=== PATIENT | female | born 1950 | race Caucasian/White ===

== ENCOUNTER 2017-04-06 11:13 | Emergency (ER) | payer BC ==
--- NOTE | 2017-04-06 12:10 | EDM.PDOC ---
ED HPI GENERAL MEDICAL PROBLEM - General Chief Complaint: Neurological Problem Stated Complaint: HEAD LAC/HAS STITCHES/HEAD NUMBNESS Time Seen by Provider: 04/06/17 11:58 Source of Information: Reports: Patient History Limitations: Reports: No Limitations - History of Present Illness INITIAL COMMENTS - FREE TEXT/NARRATIVE: Patient is a 66-year-old female who presents today with concerns of having paresthesias to the left lateral forehead and parietal aspect of her head. Patient states this past a wall clock fell off the wall hitting her left eyebrow/forehead. Patient sustained a small laceration to the eyebrow requiring a few stitches that day. She had no paresthesias prior to area. Paresthesias started after being anesthetized with unknown medication. Unknown what type of medication was utilized. Paresthesias have remained constant with no change. She has developed mild ecchymosis to the left upper eyelid. Otherwise minimal swelling is present. She denies any headache, nausea/vomiting , vision changes, numbness tingling to extremities, weakness, or any additional TIA or strokelike symptoms. She has no prior history of head bleed or TIA or stroke. Patient does not have a left tympanic membrane and thus does have some balance issues with walking that is unchanged. She denies any head/neck/back pain. - Related Data Allergies Allergy/AdvReac Type Severity Reaction Status Date / Time No Known Allergies Allergy Verified 04/06/17 11:27 Home Meds: Home Meds Aspirin [Halfprin] 81 mg PO DAILY 08/19/14 [History] DULoxetine HCl [Cymbalta] 60 mg PO DAILY 08/19/14 [History] Potassium Chloride 20 meq PO DAILY #4 tablet.er 08/19/14 [Rx] Triamterene/Hydrochlorothiazid [Triamterene-HCTZ 75-50 MG] 75 mg PO DAILY [History] lamoTRIgine [Lamotrigine] 50 mg PO BID 08/19/14 [History] Social & Family History - Tobacco Use Smoking Status *Q: Never Smoker Second Hand Smoke Exposure: No - Alcohol Use Days Per Week of Alcohol Use: 0 - Recreational Drug Use Recreational Drug Use: No ED ROS GENERAL - Review of Systems Review Of Systems: ROS reveals no pertinent complaints other than HPI. ED EXAM, NEURO - Physical Exam Exam: See Below Exam Limited By: No Limitations General Appearance: Alert, WD/WN, No Apparent Distress Eye Exam: Bilateral Eye: EOMI, Nystagmus (None found), PERRL Ears: Normal External Exam, Hearing Grossly Normal Nose: Normal Inspection Throat/Mouth: Normal Voice, No Airway Compromise Neck: Normal Inspection, Supple, Non-Tender, Full Range of Motion. No: Lymphadenopathy (L), Lymphadenopathy (R) Respiratory/Chest: No Respiratory Distress, Lungs Clear, Normal Breath Sounds, No Accessory Muscle Use Cardiovascular: Normal Peripheral Pulses, Regular Rate, Rhythm Neurological: Alert, Normal Mood/Affect, Normal Dorsiflexion, CN II-XII Intact, Normal Plantar Flexion, No Motor/Sensory Deficits, Oriented x 3, Other (With examination of left for the patient does have no sensory deficits noted. She states she has some paresthesias noted to the left lateral forehead in the parietal aspect of her head. There is normal wrinkling associated to the forehead. No findings concerning for stroke/TIA. No bruising, swelling, hematoma to the forehead or parietal aspect of her head. No facial drooping, uvula is midline, pronator drift, weakness to the upper or lower extremities, cerebellar functions intact.) Back Exam: Normal Inspection, Full Range of Motion Extremities: Normal Inspection, Non-Tender, No Pedal Edema, Normal Capillary Refill Psychiatric: Normal Affect, Normal Mood Skin Exam: Warm, Dry, Ecchymosis (Left upper eyelid), Wound/Incision ( Laceration to the left eyebrow with sutures in place. No redness, increased swelling, purulent drainage.) Course - Vital Signs Last Recorded V/S: Last Vital Signs Temp 97.7 F 04/06/17 11:28 Pulse 70 04/06/17 11:28 Resp BP 142/82 H 04/06/17 12:21 Pulse Ox 96 04/06/17 11:28 - Re-Assessments/Exams Free Text/Narrative Re-Assessment/Exam: Examination did not reveal any concerning findings at this time. No clear etiology of paresthesia but most likely associated with the trauma and also being anesthetized. No deficits noted concerning for stroke or TIA. Will discharge patient home with instructions as documented. Departure - Departure Time of Disposition: 12:09 Disposition: Home, Self-Care 01 Condition: Good Clinical Impression: Facial paresthesia - Discharge Information Instructions: Paresthesia, [id number] Referrals: Toney Lyons MD [Primary Care Provider] - Forms: ED Department Discharge Additional Instructions: Will have you followup with PCP this coming Saturday for suture removal. Paresthesias most likely associated with recent trauma and local anesthesia. At this point no focal neurological deficits are's present concerning for stroke or TIA. Continue to monitor for worsening symptoms. Return back to ED as needed.
[2017-04-06 12:21] VITALS: BP 142/82
== END 2017-04-06 12:25 | disposition home or self-care (01) ==
LOC: JD.ED 11:13
DX: R20.9 Unspecified disturbances of skin sensation (principal); Z79.82 Long term (current) use of aspirin
CPT/HCPCS: 99282; 99284

== ENCOUNTER 2017-08-06 06:48 | Day surgery (SDC) | payer BC, MEDICARE ==
--- NOTE | 2017-07-31 07:37 | HP ---
DATE OF ADMISSION: 08/06/2017 HISTORY: This is a 66-year-old female, being brought in for outpatient surgery for severe carpal tunnel problems involving the right wrist. The patient had positive nerve conduction studies showing severe involvement of the motor function and sensory function of the median nerve at the wrist level. She has had failed conservative treatment. She is now being scheduled for a right carpal tunnel release. She also has similar problems involving her left wrist, which will be addressed at a later time. ALLERGIES: No known drug allergies. PAST MEDICAL HISTORY: She been a healthy 66-year-old female. She does have a history of depression and anxiety. CURRENT MEDICATIONS: Include duloxetine and also triamterene. PAST SURGICAL HISTORY: Positive. She has had previous ankle surgery with anesthesia. She notes no problems with the anesthetic. She has a negative bleeding history, negative blood clot history. SOCIAL HISTORY: She is a nonsmoker and nondrinker. PHYSICAL EXAMINATION: VITAL SIGNS: Physical examination today reveals a well-developed, well- nourished 66-year-old female in moderate distress. HEAD, EYES, EARS, NOSE, AND THROAT: Normocephalic. NECK: Supple. CHEST: Clear. COR: Regular rate. ABDOMEN: Soft. : Intact. EXTREMITIES: Examination of the right wrist reveals severe Tinel's. Examination of the right median nerve, positive pain in the carpal tunnel area and positive thenar atrophy. ASSESSMENT: Overall impression is severe carpal tunnel syndrome, right wrist, with failed treatment. PLAN: Plan is for the patient to undergo right carpal tunnel release. LISA /[id number]
[2017-08-06] MEDS ORDERED: Lidocaine 1%/Sod Bicarbonate in NS 8.4% 1 ML Syringe PRN (07:00)
[2017-08-06] MEDS ORDERED: Sodium Chloride 0.9% 10 ML Syringe FLUSH PRN (07:00)
[2017-08-06] MEDS ORDERED: Lactated Ringers 1,000 ML IV SCH (07:00)
--- NOTE | 2017-08-06 07:08 | PCM.PREANE ---
Preanesthetic Assessment - Procedure Proposed Procedure: R CTR - Anesthesia/Transfusion/Family Hx Anesthesia History: Prior Anesthesia Without Reaction Family History of Anesthesia Reaction: No Transfusion History: No Prior Transfusion(s) Intubation History: Unknown - Review of Systems General: No Symptoms Pulmonary: No Symptoms Cardiovascular: No Symptoms Gastrointestinal: No Symptoms Neurological: No Symptoms Other: Reports: None - Physical Assessment NPO Status Date: 08/05/17 NPO Status Time: 21:00 Pulse: 73 O2 Sat by Pulse Oximetry: 95 Respiratory Rate: 16 Blood Pressure: 129/69 Temperature: 97.9 F ASA Class: 2 Mental Status: Alert & Oriented x3 Airway Class: Mallampati = 2 Dentition: Reports: Normal Dentition Thyro-Mental Finger Breadths: 3 Mouth Opening Finger Breadths: 3 ROM/Head Extension: Full Lungs: Clear to Auscultation, Normal Respiratory Effort Cardiovascular: Regular Rate, Regular Rhythm - Allergies Allergies/Adverse Reactions: Allergies Allergy/AdvReac Type Severity Reaction Status Date / Time No Known Allergies Allergy Verified 08/05/17 12:40 - Anesthesia Plan Pre-Op Medication Ordered: None - Acknowledgements Anesthesia Type Planned: [place] Pt an Appropriate Candidate for the Planned Anesthesia: Yes Alternatives and Risks of Anesthesia Discussed w Pt/Guardian: Yes Pt/Guardian Understands and Agrees with Anesthesia Plan: Yes PreAnesthesia Questionnaire HEENT History: Reports: None Cardiovascular History: Reports: High Cholesterol, Hypertension Respiratory History: Reports: None Gastrointestinal History: Reports: None Genitourinary History: Reports: None MARKETING REP History: Reports: None Musculoskeletal History: Reports: Gout Neurological History: Reports: None Psychiatric History: Reports: Anxiety, Depression Endocrine/Metabolic History: Reports: None Hematologic History: Reports: None Immunologic History: Reports: None Oncologic (Cancer) History: Reports: None Dermatologic History: Reports: None - Past Surgical History Head Surgeries/Procedures: Reports: None HEENT Surgical History: Reports: None Cardiovascular Surgical History: Reports: None Respiratory Surgical History: Reports: None GI Surgical History: Reports: Colonoscopy Female Surgical History: Reports: None Male Surgical History: Reports: None Endocrine Surgical History: Reports: None Neurological Surgical History: Reports: None Musculoskeletal Surgical History: Reports: Other (See Below) Other Musculoskeletal Surgeries/Procedures:: left ankle fracture with hardware Oncologic Surgical History: Reports: None Dermatological Surgical History: Reports: None - SUBSTANCE USE Smoking Status *Q: Former Smoker Tobacco Use Within Last Twelve Months: No Second Hand Smoke Exposure: No Days Per Week of Alcohol Use: 0 Recreational Drug Use History: No - HOME MEDS Home Medications: Home Meds Aspirin [Halfprin] 81 mg PO DAILY 08/19/14 [History] Triamterene/Hydrochlorothiazid [Triamterene-HCTZ 75-50 MG] 75 mg PO DAILY [History] DULoxetine [Cymbalta] 60 mg PO DAILY 08/05/17 [History] Dorzolamide HCl/Timolol Maleat [Cosopt Eye Drops] 1 drop EYEBOTH BID 08/05/17 [ History] - CURRENT (IN HOUSE) MEDS Current Meds: Current Medications Lactated Ringer's (Ringers, Lactated) 1,000 mls @ 125 mls/hr IV ASDIRECTED ANGEL Stop: 08/06/17 23:00 Lidocaine/Sodium Bicarbonate (Buffered Lidocaine 1% In Ns 8.4%) 0.25 ml .XX ONETIME PRN PRN Reason: Prior to IV Start Stop: 08/06/17 18:00 Sodium Chloride (Saline Flush) 10 ml FLUSH ASDIRECTED PRN PRN Reason: Keep Vein Open Stop: 08/06/17 18:00
[2017-08-06] MEDS ORDERED: Lidocaine 0.5% 50 ML SDV ONE (07:27)
[2017-08-06] MEDS ORDERED: Sodium Bicarbonate 8.4% 50 MEQ/50 ML SDV ONE (07:27)
[2017-08-06] MEDS ORDERED: fentaNYL 100 MCG/2 ML SDV ONE (07:28)
[2017-08-06] MEDS ORDERED: Propofol 200 MG/20 ML SDV ONE (07:28)
[2017-08-06] MEDS ORDERED: Midazolam 1 MG/ML 2 ML SDV ONE (07:28)
[2017-08-06] MEDS ORDERED: Acetaminophen/HYDROcodone 325-5 MG Tab PO PRN (07:33)
[2017-08-06] MEDS ORDERED: ceFAZolin 1 GM Vial ONE (07:36)
[2017-08-06] MEDS ORDERED: Lactated Ringers 1,000 ML ONE (08:32)
[2017-08-06] MEDS ORDERED: Dexamethasone 4 MG/ML SDV ONE (08:33)
--- NOTE | 2017-08-06 08:44 | PCM48HPAN ---
Post Anesthesia Note - EVALUATION WITHIN 48HRS OF ANESTHETIC Vital Signs in Normal Range: Yes Patient Participated in Evaluation: Yes Respiratory Function Stable: Yes Airway Patent: Yes Cardiovascular Function Stable: Yes Hydration Status Stable: Yes Pain Control Satisfactory: Yes Nausea and Vomiting Control Satisfactory: Yes Mental Status Recovered: Yes
[2017-08-06 08:46] VITALS: BP 126/92
--- NOTE | 2017-08-06 09:51 | OR ---
DATE OF OPERATION: 08/06/2017 SURGEON: Montrell Ramirez MD PREOPERATIVE DIAGNOSIS: Severe carpal tunnel syndrome, right wrist. POSTOPERATIVE DIAGNOSIS: Severe carpal tunnel syndrome, right wrist. ANESTHESIA: Parachute block with sedation. OPERATION PERFORMED: Right wrist carpal tunnel ligament release and exploration of median nerve. DESCRIPTION OF PROCEDURE: The patient was taken to the operative room in a supine position. She was placed under a light sedation with Parachute block anesthesia to the right upper extremity. After adequate anesthesia, the operation proceeded with prepping and draping of the right hand and arm by standard technique. After prepping and draping, the operation proceeded then with evaluation of the right palmar aspect of the right hand. An incision line was then diagrammed out, beginning approximately 1 cm distal to the flexion crease and extending for approximately 1.5 cm half, paralleling the radial aspect of the ring finger. Once that was identified, the operation then proceeded with a small incision being placed through the skin approximately 1.5 cm in length. Penetration made through the skin and subcutaneous tissues. These were dissected off the palmar fascia, which was lightly incised to expose the carpal tunnel ligament. Once the ligament area was identified, the operation proceeded with initial release beginning in the center of the open wound area that could be visualized and extending proximally. Immediately, of note, once the fascial tissues were released off the superficial portion of the ligament area, accessory muscle was found to be present extending up to the flexion crease and then all the way down to the palmar fat pad area, entire length of the ligament. The muscle was then brushed away from the lower portion of the ligament structure. Then, a sharp incision was placed through the ligament into the carpal tunnel canal, staying to the ulnar aspect of the median nerve. The ligament was then released proximally and distally by direct visualization and then the operation proceeded with release and completion of the release proximally using the mini- instruments. Once that was accomplished, the vasa vasorum returned quite nicely to the nerve and initial inspection of the nerve found it to be significantly traumatized with bruising and hematoma formation on the nerve itself in the region of the major constriction of the ligament. Once it was satisfied, the proximal portion was released. Operation then proceeded with reflecting away of the muscle tissue off the inferior portion of the ligament structure, and the release was then carried to the palmar fat pad by direct visualization. Once that was completed, the nerve was decompressed quite nicely, it was probed and using direct palpation of the soft tissue structures around the nerve area, no other further constrictions were present on the nerve itself. The operation proceeded with final inspection of the nerve from distal to proximal. The operation then proceeded with irrigation of the wound areas and no further constrictions could be noted on the nerve itself. The operation proceeded then with irrigation and closure of the skin using horizontal 4-0 Prolene mattress sutures and then reinforced with 5-0 Prolene vertical. The patient was placed in standard dressings and splint. She tolerated this procedure well. She left the operating room in a stable condition to her room for recovery. ESTIMATED BLOOD LOSS: MMODAL /[id number]
== END 2017-08-06 09:23 | disposition home or self-care (01) ==
LOC: JD.SDS 06:48
PROVIDERS: ATTEND Specialist
DX: G56.01 Carpal tunnel syndrome, right upper limb (principal); F32.9 Major depressive disorder, single episode, unspecified; F41.9 Anxiety disorder, unspecified; M10.9 Gout, unspecified; E78.5 Hyperlipidemia, unspecified; I10 Essential (primary) hypertension; Z79.82 Long term (current) use of aspirin; Z79.899 Other long term (current) drug therapy; Z98.890 Other specified postprocedural states; Z87.891 Personal history of nicotine dependence
CPT/HCPCS: 64721; J0690; J1100; J2250; J3010; J7120; 01810; J2704

== ENCOUNTER 2018-01-21 09:01 | Emergency (ER) | payer MEDICARE, OTHER ==
[2018-01-21] MEDS ORDERED: Sodium Chloride 0.9% 10 ML Syringe FLUSH PRN (09:36)
[2018-01-21] MEDS ORDERED: Aspirin 81 MG Tab.Chew PO ONE (09:36)
--- NOTE | 2018-01-21 12:15 | CR ---
Chest: Two views of the chest were obtained. Comparison: Prior chest x-ray of 08/19/14. Heart size and mediastinum are within normal limits. Lungs are clear. Mild degenerative change is scattered within the spine with mild scoliosis. Impression: 1. Incidental findings. Nothing acute is appreciated on two-view chest x-ray. Diagnostic code #2
--- NOTE | 2018-01-21 12:37 | EDM.PDOC ---
ED HPI GENERAL MEDICAL PROBLEM - General Chief Complaint: Cardiovascular Problem Stated Complaint: CHEST TIGHTNESS/TROUBLE BREATHING Time Seen by Provider: 01/21/18 09:13 Source of Information: Reports: Patient, RN Notes Reviewed - History of Present Illness INITIAL COMMENTS - FREE TEXT/NARRATIVE: 59-year-old female with intermittent chest discomfort anterior chest the past several days. She has had this occasionally in the past as well but more frequent this past week. So also has had some shortness of breath. She feels like it is ordered for her to get a deep breath. No recent cough fever or chills. No known history for coronary artery disease or diabetes. No abdominal pain nausea vomiting or diaphoresis. No strong family history for heart disease or problems. She does not smoke. Left Chest Pain Score (Numeric/FACES): 4 - Related Data Allergies Allergy/AdvReac Type Severity Reaction Status Date / Time No Known Allergies Allergy Verified 01/21/18 09:12 Home Meds: Home Meds Aspirin [Halfprin] 81 mg PO DAILY 08/19/14 [History] Triamterene/Hydrochlorothiazid [Triamterene-HCTZ 75-50 MG] 75 mg PO DAILY [History] DULoxetine [Cymbalta] 60 mg PO DAILY 08/05/17 [History] Dorzolamide HCl/Timolol Maleat [Cosopt Eye Drops] 1 drop EYEBOTH BID 08/05/17 [ History] Past Medical History HEENT History: Reports: None Cardiovascular History: Reports: High Cholesterol, Hypertension Respiratory History: Reports: None Gastrointestinal History: Reports: None Genitourinary History: Reports: None PRODUCTIVITY ENGINEER History: Reports: None Musculoskeletal History: Reports: Gout Neurological History: Reports: None Psychiatric History: Reports: Anxiety, Depression Endocrine/Metabolic History: Reports: None Hematologic History: Reports: None Immunologic History: Reports: None Oncologic (Cancer) History: Reports: None Dermatologic History: Reports: None - Past Surgical History Head Surgeries/Procedures: Reports: None HEENT Surgical History: Reports: None Cardiovascular Surgical History: Reports: None Respiratory Surgical History: Reports: None GI Surgical History: Reports: Colonoscopy Female Surgical History: Reports: None Endocrine Surgical History: Reports: None Neurological Surgical History: Reports: None Musculoskeletal Surgical History: Reports: Other (See Below) Other Musculoskeletal Surgeries/Procedures:: left ankle fracture with hardware Oncologic Surgical History: Reports: None Dermatological Surgical History: Reports: None Social & Family History - Tobacco Use Smoking Status *Q: Never Smoker Used Tobacco, but Quit: Yes Month/Year Tobacco Last Used: 1969 Second Hand Smoke Exposure: No - Caffeine Use Caffeine Use: Reports: Soda - Alcohol Use Days Per Week of Alcohol Use: 0 - Recreational Drug Use Recreational Drug Use: No ED ROS GENERAL - Review of Systems Review Of Systems: See Below Constitutional: Denies: Fever, Chills, Diaphoresis HEENT: Reports: No Symptoms Respiratory: Reports: Shortness of Breath, Other (It is not painful to take a deep breath but she feels that it is "difficult to take a deep breath"). Denies : Wheezing, Pleuritic Chest Pain, Cough Cardiovascular: Denies: Chest Pain GI/Abdominal: Denies: Abdominal Pain, Nausea, Vomiting Musculoskeletal: Denies: Shoulder Pain, Arm Pain Skin: Reports: No Symptoms Neurological: Reports: No Symptoms ED EXAM, GENERAL - Physical Exam Exam: See Below General Appearance: Alert, No Apparent Distress Eye Exam: Bilateral Eye: PERRL Throat/Mouth: Normal Inspection Head: Atraumatic. No: Facial Swelling Neck: Supple, Full Range of Motion, Other. No: Lymphadenopathy (L), Lymphadenopathy (R) (No JVD) Respiratory/Chest: No Respiratory Distress Cardiovascular: Regular Rate, Rhythm GI/Abdominal: Soft, Non-Tender. No: Guarding Back Exam: Normal Inspection Extremities: Normal Inspection, Normal Range of Motion. No: Pedal Edema, Leg Pain, Increased Warmth, Redness Neurological: Alert, Oriented, No Motor/Sensory Deficits Skin Exam: Warm, Dry, Normal Color EKG INTERPRETATION Rhythm: NSR Mina: Normal QRS: Other (There are borderline Q waves anteriorly and also lead 3) ST-T: Normal Course - Vital Signs Last Recorded V/S: Last Vital Signs Temp 98.9 F 01/21/18 09:10 Pulse 70 01/21/18 13:05 Resp 18 01/21/18 13:05 BP 117/73 01/21/18 13:05 Pulse Ox 94 L 01/21/18 13:05 - Orders/Labs/Meds Orders: Active Orders 24 hr Category Date Time Status EKG Documentation Completion [RC] ASDIRECTED Care 01/21/18 09:27 Active Holter Monitor 48 Hours [RC] .PRN Care 01/21/18 12:05 Active Peripheral IV Care [RC] . DIRECTED Care 01/21/18 09:37 Active Sodium Chloride 0.9% [Saline Flush] Med 01/21/18 09:36 Active 10 ml FLUSH ASDIRECTED PRN Peripheral IV Insertion Adult [OM.PC] Stat Oth 01/21/18 09:33 Ordered EKG 12 Lead [EK] Stat Ther 01/21/18 09:27 Ordered Medication Orders Sodium Chloride (Saline Flush) 10 ml FLUSH ASDIRECTED PRN PRN Reason: Keep Vein Open Last Admin: 01/21/18 09:35 Dose: 10 ml Labs: Laboratory Tests 01/21/18 01/21/18 Range/Units 09:35 11:58 Troponin I < 0.017 < 0.017 (0.00-0.056) ng/mL Meds: Medications Generic Name Dose Route Start Last Admin Trade Name Freq PRN Reason Stop Dose Admin Sodium Chloride 10 ml 01/21/18 09:36 01/21/18 09:35 Saline Flush FLUSH 10 ml ASDIRECTED PRN Administration Keep Vein Open Discontinued Medications Generic Name Dose Route Start Last Admin Trade Name Freq PRN Reason Stop Dose Admin Aspirin 162 mg 01/21/18 09:36 01/21/18 09:42 Aspirin PO 01/21/18 09:37 162 mg ONETIME ONE Administration - Re-Assessments/Exams Free Text/Narrative Re-Assessment/Exam: 01/21/18 14:05 Initial troponin came back negative. Second troponin also came back negative. Chest x-ray looks good, she just had lab work drawn less than one week ago at the clinic. Those have been faxed over to us and reviewed, they are all relatively normal. Monitor does show frequent PVCs. Therefore I am going to send her home with a 48 hour Holter monitor. Also have placed an order for outpatient echocardiogram. Discharge instructions as documented. Departure - Departure Time of Disposition: 12:36 Disposition: Home, Self-Care 01 Condition: Fair Clinical Impression: Atypical chest pain, PVCs (premature ventricular contractions) Instructions: Premature Ventricular Contraction, Nonspecific Chest Pain Referrals: Marifer Quesada PA-C [Primary Care Provider] - Forms: ED Department Discharge Additional Instructions: Try eat a healthy diet with plenty of fruit and vegetables, research the Mediterranean diet and also look at [facility] guidelines for further diet information. Continue regular exercise. 48 hour Holter monitor. Recheck echocardiogram. Follow up with Marifer at the clinic after all of this has been done for follow-up information, further evaluation and treatment as needed. Return to ED as needed if symptoms worsening in any way. - My Orders Last 24 Hours: My Active Orders 01/21/18 09:27 EKG Documentation Completion [RC] ASDIRECTED EKG 12 Lead [EK] Stat 01/21/18 09:33 Peripheral IV Insertion Adult [OM.PC] Stat 01/21/18 09:36 Sodium Chloride 0.9% [Saline Flush] 10 ml FLUSH ASDIRECTED PRN 01/21/18 09:37 Peripheral IV Care [RC] . DIRECTED 01/21/18 12:05 Holter Monitor 48 Hours [RC] .PRN - Assessment/Plan Last 24 Hours: My Active Orders 01/21/18 09:27 EKG Documentation Completion [RC] ASDIRECTED EKG 12 Lead [EK] Stat 01/21/18 09:33 Peripheral IV Insertion Adult [OM.PC] Stat 01/21/18 09:36 Sodium Chloride 0.9% [Saline Flush] 10 ml FLUSH ASDIRECTED PRN 01/21/18 09:37 Peripheral IV Care [RC] . DIRECTED 01/21/18 12:05 Holter Monitor 48 Hours [RC] .PRN
[2018-01-21 13:16] VITALS: BP 117/73
== END 2018-01-21 13:05 | disposition home or self-care (01) ==
LOC: JD.ED 09:01
DX: I49.3 Ventricular premature depolarization (principal); R07.89 Other chest pain; I10 Essential (primary) hypertension; E78.00 Pure hypercholesterolemia, unspecified; F32.9 Major depressive disorder, single episode, unspecified; Z79.82 Long term (current) use of aspirin; Z79.899 Other long term (current) drug therapy; Z87.891 Personal history of nicotine dependence
CPT/HCPCS: 36415; 71046; 84484; 93005; 93225; 93226; 99285; A9270; J7050; 93010; 99284-25

== ENCOUNTER 2018-07-08 08:47 | Emergency (ER) | payer MEDICARE, OTHER ==
[2018-07-08] MEDS ORDERED: Sodium Chloride 0.9% 10 ML Syringe FLUSH PRN (09:11)
[2018-07-08] MEDS ORDERED: Labetalol 100 MG/20 ML MDV IVPUSH ONE ×2 (09:12→10:38)
--- NOTE | 2018-07-08 10:26 | CT ---
Head CT Technique: Multiple axial sections through the brain were obtained. Intravenous contrast was not utilized. Comparison: No prior intracranial imaging is available. Findings: Ventricles along with basal cisterns and sulci over the convexities are mildly prominent. Low density is noted within the right temporal lobe either due to previous infarct or encephalomalacia from old trauma. No other abnormal parenchymal densities are seen. No evidence of intracranial hemorrhage. No midline shift or mass effect is seen. Bone window settings were reviewed which shows no acute calvarial abnormality. Visualized sinuses are clear. Impression: 1. Low density within the right temporal lobe which appears old with differential as noted above. 2. Nothing acute is appreciated on noncontrast head CT study. Diagnostic code #3
[2018-07-08] MEDS ORDERED: Ibuprofen 600 MG Tab PO ONE (10:37)
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
[2018-07-08 10:51] VITALS: BP 190/89
== END 2018-07-08 12:20 | disposition home or self-care (01) ==
LOC: JD.ED 08:47
DX: I10 Essential (primary) hypertension (principal); R51 Headache; Z79.82 Long term (current) use of aspirin; Z79.899 Other long term (current) drug therapy
CPT/HCPCS: 36415; 70450; 80053; 84484; 85025; 93005; 96374; 96376; 99285; A9270; J3490; J7050; 93010; 99284-25

== ENCOUNTER 2022-03-29 07:05 | Day surgery (SDC) | payer MEDICARE, BC ==
[~2022-03-29 07:05] MED LIST: Bupivacaine 0.25% 10 ML SDV ONE; HYDROmorphone 0.5 MG/0.5 ML Syringe IVPUSH PRN; Lactated Ringers 1,000 ML IV SCH; Lidocaine 1% 30 ML SDV ONE; Lidocaine 1%/Sod Bicarbonate in NS 8.4% 1 ML Syringe IDERM PRN; Midazolam 1 MG/ML 2 ML SDV ONE; Ondansetron 4 MG/2 ML SDV IVPUSH PRN; Ondansetron 4 MG/2 ML SDV ONE; Propofol 200 MG/20 ML SDV ONE; Sodium Chloride 0.9% 10 ML Syringe FLUSH PRN; Sodium Chloride 0.9% 10 ML Syringe FLUSH SCH; fentaNYL 100 MCG/2 ML SDV ONE
[2022-03-29] MEDS ORDERED: fentaNYL 100 MCG/2 ML SDV ONE (07:15)
[2022-03-29 08:09] VITALS: BP 113/68; PULSE 66
== END 2022-03-29 08:11 | disposition home or self-care (01) ==
LOC: JD.SDS 07:05
PROVIDERS: ATTEND Orthopaedic Surgery
DX: G56.11 Other lesions of median nerve, right upper limb (principal); G56.01 Carpal tunnel syndrome, right upper limb; I10 Essential (primary) hypertension; E78.5 Hyperlipidemia, unspecified; F41.9 Anxiety disorder, unspecified; F32.A Depression, unspecified; G47.33 Obstructive sleep apnea (adult) (pediatric); M10.9 Gout, unspecified; K21.9 Gastro-esophageal reflux disease without esophagitis; M48.02 Spinal stenosis, cervical region; J31.0 Chronic rhinitis; Z98.890 Other specified postprocedural states; Z79.899 Other long term (current) drug therapy; Z88.8 Allergy status to other drugs, medicaments and biological substances; Z87.891 Personal history of nicotine dependence
CPT/HCPCS: 64721; J2250; J2405; J2704; J3010; J3490; J7120; 01810

== ENCOUNTER 2022-04-19 06:00 | Day surgery (SDC) | payer MEDICARE, BC ==
[~2022-04-19 06:00] MED LIST changes: -Bupivacaine 0.25% 10 ML SDV ONE; -HYDROmorphone 0.5 MG/0.5 ML Syringe IVPUSH PRN; -Lidocaine 1% 30 ML SDV ONE; -Midazolam 1 MG/ML 2 ML SDV ONE; -Ondansetron 4 MG/2 ML SDV IVPUSH PRN; -Ondansetron 4 MG/2 ML SDV ONE; -Propofol 200 MG/20 ML SDV ONE; -fentaNYL 100 MCG/2 ML SDV ONE
[2022-04-19] MEDS ORDERED: Bupivacaine 0.25% 10 ML SDV ONE (06:01)
[2022-04-19] MEDS ORDERED: Lidocaine 1% 30 ML SDV ONE (06:01)
[2022-04-19] MEDS ORDERED: Ondansetron 4 MG/2 ML SDV ONE (06:07)
[2022-04-19] MEDS ORDERED: Lidocaine 1% 4 ML ONE (06:07)
[2022-04-19] MEDS ORDERED: fentaNYL 100 MCG/2 ML SDV ONE (06:08)
[2022-04-19] MEDS ORDERED: Midazolam 1 MG/ML 2 ML SDV ONE (06:08)
[2022-04-19] MEDS ORDERED: Propofol 200 MG/20 ML SDV ONE (06:08)
[2022-04-19] MEDS ORDERED: Ondansetron 4 MG/2 ML SDV IVPUSH PRN (06:57)
[2022-04-19 08:14] VITALS: BP 133/64; PULSE 60
== END 2022-04-19 08:06 | disposition home or self-care (01) ==
LOC: JD.SDS 06:00
PROVIDERS: ATTEND Orthopaedic Surgery
DX: G56.12 Other lesions of median nerve, left upper limb (principal); G56.03 Carpal tunnel syndrome, bilateral upper limbs; F41.9 Anxiety disorder, unspecified; F32.A Depression, unspecified; M10.9 Gout, unspecified; I10 Essential (primary) hypertension; E78.5 Hyperlipidemia, unspecified; G47.33 Obstructive sleep apnea (adult) (pediatric); K21.9 Gastro-esophageal reflux disease without esophagitis; J31.0 Chronic rhinitis; Z98.890 Other specified postprocedural states; Z88.8 Allergy status to other drugs, medicaments and biological substances; Z87.891 Personal history of nicotine dependence
CPT/HCPCS: 64721; J2250; J2405; J2704; J3010; J3490; J7120; 01810; 99100